=== PATIENT | female | born 1950 | race Caucasian/White ===

== ENCOUNTER 2021-02-12 07:24 | Outpatient (REF) | payer MEDICARE, OTHER, SELFPAY ==
--- NOTE | ~2021-02-12 | MM_ITS ---
EXAMINATION: MM SCREENING DIGITAL BREAST TOMOSYNTHESIS, BILATERAL CLINICAL INFORMATION: Screening. Asymptomatic. The lifetime risk of breast cancer based on the Tyrer-Cuzick Model is 5%. COMPARISON: Mammography: 02/08/2020, 02/01/2019, 12/03/2017 TECHNIQUE: Digital breast tomosynthesis is performed in both the craniocaudal and mediolateral oblique views along with computer-aided detection (CAD). Synthesized 2D images are generated from the tomosynthesis. FINDINGS: There are scattered areas of fibroglandular density (ACR BI-RADS breast composition Category b). There are no significant masses, abnormal calcifications, or other abnormalities. Parenchymal pattern is similar to prior studies. No developing density. No significant changes. MM/MM tomosynthesis screening BI IMPRESSION: No mammographic evidence of malignancy. ASSESSMENT: BI-RADS 1: Negative RECOMMENDATION: Routine annual mammography screening. This patient's information was entered into a reminder system with a target due date for their next mammogram.
== END 2021-02-12 07:25 | disposition home or self-care (01) ==
LOC: HO.MAMMO 07:24
PROVIDERS: PCP Internal Medicine; Visit Provider Internal Medicine
DX: Z12.31 Encounter for screening mammogram for malignant neoplasm of breast (principal)
CPT/HCPCS: 77063; 77067

== ENCOUNTER 2021-05-13 06:04 | Day surgery (SDC) | payer MEDICARE, OTHER, SELFPAY ==
[2021-05-07 10:54] VITALS: BMI 24.1
--- NOTE | 2021-05-09 07:53 | MHC.SHP ---
Pre-Procedural Eval Section A Date of Service: 05/09/21 The patient is an INPATIENT: No Changes since office visit: No Cold of Flu in the past 2 weeks, No New Medical Problems, No Changes in Medication and No Patient answered all questions The History & Physical has been completed within 30 days and I have reviewed it.: Yes Section B Chief Complaint: Cataract Right Eye Allergies: Allergies Allergy/AdvReac Type Severity Reaction Status Date / Time seafood Allergy Severe severe Verified 05/07/21 10:52 vomiting latex Allergy Intermediate Rash Verified 05/07/21 10:52 Plan Diagnosis/Plan: Unchanged I have reviewed the history and physical and performed a pertinent physical examination on my patient. No changes have occurred unless specified.
--- NOTE | 2021-05-10 08:21 | HO.ANESPROP2 ---
Documented by User: Carmelina Brian NP 05/10/21 08:22 HPI - Anesthesia Eval Consult details Narrative: 70yo F for Right Cataract Extraction IOL Insertion No prev cataract on record PCP cleared REPLACED BY [facility] Past Medical History Medical History COVID-19 vaccine series completed DJD (degenerative joint disease) Elevated cholesterol Heartburn symptom Surgical History Surgical History H/O colonoscopy Social History Social History Are you a primary home care manager rn to a significant other at home: No Do you presently have visiting nurse or other home services: No Patient Tobacco Use Status: Never used Tobacco Use of substances other than those prescribed or required for medical reasons: No Have you been hit, kicked, punched, or otherwise hurt by someone within the past year? If so, by whom?: No Are you DNR?: No Advance Directives: No Advance Directives Information Provided: Yes (informational brochure mailed) Advance Directives on File: No Recently lost weight without trying: No Eating poorly because of decreased appetite: No Nutrition Risks: No Nutritional Risk Poor oral hygiene: No (upper partial) Meds Allergies Allergy/AdvReac Type Severity Reaction Status Date / Time seafood Allergy Severe severe Verified 05/13/21 06:16 vomiting latex Allergy Intermediate Rash Verified 05/13/21 06:16 Home Medications Medication Instructions Recorded Confirmed Last Taken Type cholecalciferol (vitamin D3) 25 25 mcg PO QAM 05/07/21 05/07/21 Unknown History mcg (1,000 unit) capsule (Vitamin D3) multivitamin 1 tab PO QAM 05/07/21 05/07/21 Unknown History simvastatin 40 mg tablet 40 mg PO QAM 05/07/21 05/07/21 Unknown History Exam Exam Date and Time: May 10, 202121 Height,Weight and Vital Signs: Height 5 ft 6.5 in Weight 68.946 kg Assessment and Plan Assessment Anesthesia Assessment: Chart Reviewed Documented by User: Chiara Falcon MD 05/13/21 07:26 REPLACED BY [facility] Past Medical History Medical History COVID-19 vaccine series completed DJD (degenerative joint disease) Elevated cholesterol Heartburn symptom Family History Family history of problems with anesthesia: No Surgical History Surgical History H/O colonoscopy History of Problems with Anesthesia: No Social History Social History Are you a primary home care manager rn to a significant other at home: No Do you presently have visiting nurse or other home services: No Patient Tobacco Use Status: Never used Tobacco Use of substances other than those prescribed or required for medical reasons: No Have you been hit, kicked, punched, or otherwise hurt by someone within the past year? If so, by whom?: No Are you DNR?: No Advance Directives: No Advance Directives Information Provided: Yes (informational brochure mailed) Advance Directives on File: No Recently lost weight without trying: No Eating poorly because of decreased appetite: No Nutrition Risks: No Nutritional Risk Poor oral hygiene: No (upper partial) Meds Allergies Allergy/AdvReac Type Severity Reaction Status Date / Time seafood Allergy Severe severe Verified 05/13/21 06:16 vomiting latex Allergy Intermediate Rash Verified 05/13/21 06:16 Home Medications Medication Instructions Recorded Confirmed Last Taken Type cholecalciferol (vitamin D3) 25 25 mcg PO QAM 05/07/21 05/07/21 Unknown History mcg (1,000 unit) capsule (Vitamin D3) multivitamin 1 tab PO QAM 05/07/21 05/07/21 Unknown History simvastatin 40 mg tablet 40 mg PO QAM 05/07/21 05/07/21 Unknown History Exam Height,Weight and Vital Signs: Height 5 ft 6.5 in Weight 68.946 kg Vital Signs Temp Pulse Resp BP Pulse Ox 05/13/21 06:20 97.9 F 69 16 170/78 H 98 Airway Mallampati Class: II TM Dist: >3cm Neck ROM: Full Heart: RRR Lungs: CTAB Assessment and Plan Assessment Anesthesia Assessment: Anesthesia Plan Discussed Final Anesthetic Review Family History of Problems with Anesthesia: No History of Problems with Anesthesia: No NPO: Yes ASA Class: II Final Preanesthetic Review: No Changes in Pt Med Stat, Meds/Allgs Chart Reviewed, Consent Obtained/Reviewed and Anes Risks/Benef Reviewed Patient Risk: Low Procedure Risk: Low Assessment/Block/Sedation in SS: Assess/Block/Sedation-SS Anesthetic Plan Anesthetic Plan: MAC: Disposition: Standard PACU
[2021-05-13 06:20] VITALS: BP 170/78; PULSE 69; RESP 16; TEMP 36.6; O2SAT 98
[2021-05-13] MEDS: Tetracaine HCl/PF 0.5% Oph Sol 4 ML DROPS 1 DROP EYE-RIGHT (06:26)
[2021-05-13] MEDS: Tropicamide 1 % Ophth Sol 3 ML BTL 1 DROP EYE-RIGHT ×3 (06:28→06:36)
[2021-05-13] MEDS: Phenylephrine HCL 2.5% Oph SoL 2 ML BOTTLE 1 DROP EYE-RIGHT ×3 (06:31→06:39)
[2021-05-13] MEDS: Lactated Ringers 500 ML 50 ML IV (06:33)
--- NOTE | 2021-05-13 08:17 | HO.PNOPHT ---
Ophthalmology Procedure Procedure Date of Service: 05/13/21 Ophthalmology Viscoelastic: Healon Duet Dual Pack Pro Ophthalmology Lenses: TECNIS [id number] (15.5) Procedure Notes: PREOPERATIVE DIAGNOSIS: Decreased visual acuity right eye secondary to cataract POSTOPERATIVE DIAGNOSIS: Same PROCEDURE: Right cataract extraction with intraocular lens insertion SURGEON: Rashad Short M.D. ANESTHESIA: Topical/MAC ESTIMATED BLOOD LOSS: None COMPLICATIONS: None After obtaining informed consent, the patient was brought to the operating room suite and placed in the supine position. After adequate sedation per anesthesia, topical drops of Tetracaine were given to the right eye. The eye was then prepped and draped in the usual sterile fashion. The operating room microscope was then positioned over the operative eye and a lid speculum placed. A paracentesis was created. Viscoelastic was then instilled into the anterior chamber. A three plane incision was then created temporally, utilizing a 2.85 mm keratome. Capsulotomy forceps were then utilized to create a circular tear capsulotomy. Hydrodissection and hydrodelineation were carried out until adequate mobilization of the nucleus occurred. Phacoemulsification was then utilized to remove the dense central nucleus followed by removal of the cortical material utilizing the automated aspiration irrigation unit. Viscoelastic was instilled into the posterior capsular bag followed by placement of a posterior chamber intraocular lens without difficulty. The residual Viscoelastic was then removed utilizing the automated IA machine. The wound was checked and found to be watertight. The patient tolerated the procedure well and the lid speculum was removed. Intracameral injection of Vigamox 0.1 mL followed by a subtenon injection of Kenalog-40 0.2 mL were administered. The patient will be seen in the a.m.
[2021-05-13 08:51] VITALS: BP 148/73; PULSE 67; RESP 14; TEMP 36.3; O2SAT 97
== END 2021-05-13 08:59 | disposition home or self-care (01) ==
PROVIDERS: PCP Internal Medicine; Visit Provider Ophthalmology
PROC: (CPT 66985; principal; 2021-05-13 08:30)
DX: H25.11 Age-related nuclear cataract, right eye (principal); H54.7 Unspecified visual loss; Z83.511 Family history of glaucoma; Z83.518 Family history of other specified eye disorder; E78.00 Pure hypercholesterolemia, unspecified; Z79.899 Other long term (current) drug therapy
CPT/HCPCS: 66984; J2250; J3010; J3300; V2632

== ENCOUNTER 2021-05-27 06:07 | Day surgery (SDC) | payer MEDICARE, OTHER, SELFPAY ==
[2021-05-07 10:57] VITALS: BMI 24.1
--- NOTE | 2021-05-23 16:15 | MHC.SHP ---
Pre-Procedural Eval Section A Date of Service: 05/23/21 The patient is an INPATIENT: No Changes since office visit: No Cold of Flu in the past 2 weeks, No New Medical Problems, No Changes in Medication and No Patient answered all questions The History & Physical has been completed within 30 days and I have reviewed it.: Yes Section B Chief Complaint: Cataract Left Eye Allergies: Allergies Allergy/AdvReac Type Severity Reaction Status Date / Time seafood Allergy Severe severe Verified 05/13/21 06:16 vomiting latex Allergy Intermediate Rash Verified 05/13/21 06:16 Plan Diagnosis/Plan: Unchanged I have reviewed the history and physical and performed a pertinent physical examination on my patient. No changes have occurred unless specified.
--- NOTE | 2021-05-24 08:34 | P.CONAN_ITS ---
Documented by User: Carmelina Brian NP 05/24/21 08:34 HPI - Anesthesia Eval Consult details Narrative: 70yo F for Left Cataract Extraction IOL Insertion PCP Cleared Right eye 05/13/2021 with TIVA: Fentanyl 50, Midaz 1 PMFSH Past Medical History Medical History COVID-19 vaccine series completed DJD (degenerative joint disease) Elevated cholesterol Heartburn symptom Family History Family history of problems with anesthesia: No Surgical History Surgical History H/O colonoscopy History of Problems with Anesthesia: No Social History Social History Are you a primary progressive care nurse to a significant other at home: No Do you presently have visiting nurse or other home services: No Patient Tobacco Use Status: Never used Tobacco Use of substances other than those prescribed or required for medical reasons: No Have you been hit, kicked, punched, or otherwise hurt by someone within the past year? If so, by whom?: No Are you DNR?: No Advance Directives: No Advance Directives Information Provided: Yes (informational brochure mailed) Advance Directives on File: No Recently lost weight without trying: No Eating poorly because of decreased appetite: No Nutrition Risks: No Nutritional Risk Poor oral hygiene: No (upper partial) Meds Allergies Allergy/AdvReac Type Severity Reaction Status Date / Time seafood Allergy Severe severe Verified 05/13/21 06:16 vomiting latex Allergy Intermediate Rash Verified 05/13/21 06:16 Home Medications Medication Instructions Recorded Confirmed Last Taken Type cholecalciferol (vitamin D3) 25 25 mcg PO QAM 05/07/21 05/07/21 Unknown History mcg (1,000 unit) capsule (Vitamin D3) multivitamin 1 tab PO QAM 05/07/21 05/07/21 Unknown History simvastatin 40 mg tablet 40 mg PO QAM 05/07/21 05/07/21 Unknown History Exam Exam Date and Time: May 24, 2021 0834 Height,Weight and Vital Signs: Height 5 ft 6.5 in Weight 68.946 kg Assessment and Plan Assessment Anesthesia Assessment: Chart Reviewed Final Anesthetic Review Family History of Problems with Anesthesia: No History of Problems with Anesthesia: No Documented by User: Chiara Falcon MD 05/27/21 08:09 PMFSH Past Medical History Medical History COVID-19 vaccine series completed DJD (degenerative joint disease) Elevated cholesterol Heartburn symptom Surgical History Surgical History H/O colonoscopy Social History Social History Are you a primary progressive care nurse to a significant other at home: No Do you presently have visiting nurse or other home services: No Patient Tobacco Use Status: Never used Tobacco Use of substances other than those prescribed or required for medical reasons: No Have you been hit, kicked, punched, or otherwise hurt by someone within the past year? If so, by whom?: No Are you DNR?: No Advance Directives: No Advance Directives Information Provided: Yes (informational brochure mailed) Advance Directives on File: No Recently lost weight without trying: No Eating poorly because of decreased appetite: No Nutrition Risks: No Nutritional Risk Poor oral hygiene: No (upper partial) Meds Allergies Allergy/AdvReac Type Severity Reaction Status Date / Time seafood Allergy Severe severe Verified 05/13/21 06:16 vomiting latex Allergy Intermediate Rash Verified 05/13/21 06:16 Home Medications Medication Instructions Recorded Confirmed Last Taken Type cholecalciferol (vitamin D3) 25 25 mcg PO QAM 05/07/21 05/07/21 Unknown History mcg (1,000 unit) capsule (Vitamin D3) multivitamin 1 tab PO QAM 05/07/21 05/07/21 Unknown History simvastatin 40 mg tablet 40 mg PO QAM 05/07/21 05/07/21 Unknown History Exam Height,Weight and Vital Signs: Height 5 ft 6.5 in Weight 68.946 kg Vital Signs Temp Pulse Resp BP Pulse Ox 05/27/21 06:25 96.8 F 63 18 156/70 H 97 Airway Mallampati Class: II TM Dist: >3cm Neck ROM: Full Heart: RRR Lungs: CTAB Assessment and Plan Final Anesthetic Review NPO: Yes ASA Class: II Final Preanesthetic Review: No Changes in Pt Med Stat, Meds/Allgs Chart Reviewed, Consent Obtained/Reviewed and Anes Risks/Benef Reviewed Patient Risk: Low Procedure Risk: Low Assessment/Block/Sedation in SS: Assess/Block/Sedation-SS Anesthetic Plan Anesthetic Plan: MAC: Disposition: Standard PACU
[2021-05-27 06:25] VITALS: BP 156/70; PULSE 63; RESP 18; TEMP 36; O2SAT 97
[2021-05-27] MEDS: Tetracaine HCl/PF 0.5% Oph Sol 4 ML DROPS 1 DROP EYE-LEFT (06:29)
[2021-05-27] MEDS: Phenylephrine HCL 2.5% Oph SoL 2 ML BOTTLE 1 DROP EYE-LEFT ×3 (06:29→06:30)
[2021-05-27] MEDS: Tropicamide 1 % Ophth Sol 3 ML BTL 1 DROP EYE-LEFT ×3 (06:29→06:30)
[2021-05-27] MEDS: Lactated Ringers 500 ML 50 ML IV (06:31)
--- NOTE | 2021-05-27 08:39 | HO.PNOPHT ---
Ophthalmology Procedure Procedure Date of Service: 05/27/21 Ophthalmology Viscoelastic: Healon Duet Dual Pack Pro Ophthalmology Lenses: TECVICKEY [id number] (16) Procedure Notes: PREOPERATIVE DIAGNOSIS: Decreased visual acuity left eye secondary to cataract POSTOPERATIVE DIAGNOSIS: Same PROCEDURE: Left cataract extraction with intraocular lens insertion SURGEON: Rashad Short M.D. ANESTHESIA: Topical/MAC ESTIMATED BLOOD LOSS: None COMPLICATIONS: None After obtaining informed consent, the patient was brought to the operation room suite and placed in the supine position. After adequate sedation per anesthesia, topical drops of Tetracaine were given to the left eye. The eye was then prepped and draped in the usual sterile fashion. The operating room microscope was then positioned over the operative eye and a lid speculum placed. A paracentesis was created. Viscoelastic was then instilled into the anterior chamber. A three plane incision was then created temporally, utilizing a 2.85 mm keratome. Capsulotomy forceps were then utilized to create a circular tear capsulotomy. Hydrodissection and hydrodelineation were carried out until adequate mobilization of the nucleus occurred. Phacoemulsification was then utilized to remove the dense central nucleus followed by removal of the cortical material utilizing the automated aspiration irrigation unit. Viscoat elastic was instilled into the posterior capsular bag followed by placement of a posterior chamber intraocular lens without difficulty. The residual Viscoat elastic was then removed utilizing the automated IA machine. The wound was check and found to be watertight. The patient tolerated the procedure well and the lid speculum was removed. Intracameral injection of Vigamox 0.1 mL followed by a subtenon injection of Kenalog-40 0.2 mL were administered. The patient will be seen in the a.m.
[2021-05-27 09:06] VITALS: BP 129/62; PULSE 62; RESP 16; TEMP 36.3; O2SAT 96
== END 2021-05-27 09:21 | disposition home or self-care (01) ==
PROVIDERS: PCP Internal Medicine; Visit Provider Ophthalmology
PROC: (CPT 66985; principal; 2021-05-27 08:40)
DX: H25.12 Age-related nuclear cataract, left eye (principal); Z83.511 Family history of glaucoma; Z83.518 Family history of other specified eye disorder; H54.7 Unspecified visual loss; E78.00 Pure hypercholesterolemia, unspecified; Z79.899 Other long term (current) drug therapy
CPT/HCPCS: 66984; J2250; J3010; J3300; V2632

== ENCOUNTER 2022-02-17 07:46 | Outpatient (REF) | payer MEDICARE, OTHER, SELFPAY ==
--- NOTE | ~2022-02-17 | MM_ITS ---
EXAMINATION: MM SCREENING DIGITAL BREAST TOMOSYNTHESIS, BILATERAL CLINICAL INFORMATION: Screening. Asymptomatic. The lifetime risk of breast cancer based on the Tyrer-Cuzick Model is 5%. COMPARISON: Mammography: 02/12/2021, 02/08/2020, 02/01/2019 TECHNIQUE: Digital breast tomosynthesis is performed in both the craniocaudal and mediolateral oblique views along with computer-aided detection (CAD). Synthesized 2D images are generated from the tomosynthesis. FINDINGS: There are scattered areas of fibroglandular density (ACR BI-RADS breast composition Category b). There are no significant masses, abnormal calcifications, or other abnormalities. The axilla and skin contours are unremarkable. There are no significant changes from prior studies. MM/MM tomosynthesis screening BI IMPRESSION: No mammographic evidence of malignancy. ASSESSMENT: BI-RADS 1: Negative RECOMMENDATION: Routine annual mammography screening. This patient's information was entered into a reminder system with a target due date for their next mammogram.
== END 2022-02-17 07:47 | disposition home or self-care (01) ==
LOC: HO.MAMMO 07:46
PROVIDERS: PCP Internal Medicine; Visit Provider Internal Medicine
DX: Z12.31 Encounter for screening mammogram for malignant neoplasm of breast (principal)
CPT/HCPCS: 77063; 77067

== ENCOUNTER 2023-04-15 15:44 | Outpatient (REF) | payer MEDICARE, OTHER, SELFPAY | END 2023-04-15 15:45 | disposition home or self-care (01) | LOC: HO.MAMMO 15:44 | PROVIDERS: PCP Internal Medicine; Visit Provider Internal Medicine | DX: Z12.31 Encounter for screening mammogram for malignant neoplasm of breast (principal) | CPT/HCPCS: 77063; 77067 ==

== ENCOUNTER → 2023-04-15 15:45 | Outpatient (BNV) | payer MEDICARE, OTHER, SELFPAY | PROVIDERS: PCP Internal Medicine; Visit Provider Radiology Diagnostic Radiology | DX: Z12.31 Encounter for screening mammogram for malignant neoplasm of breast (principal) | CPT/HCPCS: 77063; 77067 ==

== ENCOUNTER 2024-05-03 07:51 | Outpatient (REF) | payer MEDICARE, OTHER, SELFPAY ==
--- NOTE | ~2024-05-03 | MM_ITS ---
EXAMINATION: MM SCREENING DIGITAL BREAST TOMOSYNTHESIS, BILATERAL CLINICAL INFORMATION: Screening. Asymptomatic. COMPARISON: Mammography: Comparison is made with available priors TECHNIQUE: Digital breast mammography with tomosynthesis is performed in both the craniocaudal and mediolateral oblique views along with computer-aided detection (CAD). FINDINGS: There are scattered areas of fibroglandular density (ACR BI-RADS breast composition Category b). There are no significant masses, abnormal calcifications, or other abnormalities. MM/MM tomosynthesis screening BI IMPRESSION: No mammographic evidence of malignancy. ASSESSMENT: BI-RADS BI-RADS 1 - Negative RECOMMENDATION: Routine annual mammography screening. 1 year F/U This examination should not preclude the clinical evaluation of a suspicious palpable abnormality. This patient's information was entered into a reminder system with a target due date for their next mammogram. Electronically signed by: Chelsie Almanzar DO 05/11/2024 12:28 PM [facility]
== END 2024-05-03 07:52 | disposition home or self-care (01) ==
LOC: HO.MAMMO 07:51
PROVIDERS: PCP Internal Medicine; Visit Provider Internal Medicine
DX: Z12.31 Encounter for screening mammogram for malignant neoplasm of breast (principal)
CPT/HCPCS: 77063; 77067

== ENCOUNTER → 2024-05-03 08:15 | Outpatient (BNV) | payer MEDICARE, OTHER, SELFPAY | PROVIDERS: PCP Internal Medicine; Visit Provider Internal Medicine | DX: Z12.31 Encounter for screening mammogram for malignant neoplasm of breast (principal) | CPT/HCPCS: 77063; 77067 ==

== ENCOUNTER 2024-10-22 13:30 | Outpatient (AMB) | payer MEDICARE, OTHER, SELFPAY ==
[2024-10-22 13:33] VITALS: BP 200/90; PULSE 80; TEMP 36.7; O2SAT 98
--- NOTE | 2024-10-22 13:33 | MHC.OFFWIV ---
Intake Vital Signs 10/22/24 13:33 10/22/24 14:52 Height 5 ft 6.5 in BMI Reason not done Patient refused/unable BP 200/90 H 180/80 H Blood Pressure Location Rt brachial Rt brachial Position Sitting Pulse 80 Pulse Source Pulse Oximeter Temp 98.1 F Temp Source Oral Pulse Oximetry (%) 98 Oxygen Delivery Method Room Air Intake Visit Reasons: EP BP 200/95, headache, shaky Patient Tobacco Use Status: Never used Tobacco Allergies seafood Allergy (Severe, Verified 10/22/24 13:33) severe vomiting latex Allergy (Intermediate, Verified 10/22/24 13:33) Rash Do you need a note to return to daycare/school/sports/work: No HPI EP BP 200/95, headache, shaky HPI Details Patient is a 74-year-old female who comes to the walk-in clinic complaining of headache, and feeling shaky, associated with a home blood pressure of 200/95. She denies chest pain, palpitations, shortness of breath, dizziness or vertigo, vision changes, weakness, loss of sensation, or other significant associated symptoms. [facility] Medical History COVID-19 vaccine series completed DJD (degenerative joint disease) Elevated cholesterol Heartburn symptom Surgical History H/O colonoscopy Social History Are you a primary anesthesiologist and critical care to a significant other at home: No Do you presently have visiting nurse or other home services: No Patient Tobacco Use Status: Never used Tobacco Review of Systems Const All systems reviewed & are unremarkable except as noted in HPI and below Physical Exam Vital Signs: Last Vital Signs Temp 98.1 F 10/22/24 13:33 Pulse 80 10/22/24 13:33 BP 180/80 H 10/22/24 14:52 Pulse Ox 98 10/22/24 13:33 Oxygen Delivery Method Room Air 10/22/24 13:33 Const General: cooperative, alert and anxious; No comfortable Nutritional Appearance: average body habitus Neck Neck: Yes normal visual inspection and Yes no JVD Chest Chest palpation & inspection: normal palpation of entire chest wall Resp Effort & Inspection: normal respiratory effort, able to speak in complete sentences, no audible wheezes, no cough, no grunting, not labored, no nasal flaring, no retractions and symmetric chest movement Auscultation: clear to auscultation bilaterally, no crackles, no rales, no rhonchi, no wheezes, lung sounds not diminished and No rub present Cardio Rate: regular rate Skin Other: Good color, warm and dry Psych Appearance: grossly normal Mental Status: mental status grossly normal Speech and movement: Normal speech and movement present Affect: normal affect Attitude: cooperative Thought process: Normal thought process present Insight: Good insight present (Psych) Judgement: Good judgement present (Psych) Results Reviewed Results Reviewed: Twelve lead EKG in office today shows normal sinus rhythm with no ST changes Assessment & Plan Assessment & Plan (1) Hypertensive urgency: Code(s): I16.0 - Hypertensive urgency Plan: Patient is a 74-year-old female comes to the walk-in clinic complaining of having headache, feeling shaky, associated with being in stage III hypertension in the office today. Twelve lead EKG shows normal sinus rhythm with no ST changes. I advised patient that I strongly recommended that she go to the emergency department for evaluation, and she was amenable to this. Expect report called in Coding Level of Care Code Est Pt Level 4 (97921) Diagnoses Hypertensive urgency I16.0
[2024-10-22 14:52] VITALS: BP 180/80
== END 2024-10-22 17:56 | disposition home or self-care (01) ==
PROVIDERS: PCP Internal Medicine; Visit Provider Physician Assistant Medical
DX: I16.0 Hypertensive urgency (principal)

== ENCOUNTER → 2024-10-22 13:30 | Outpatient (BNVA) | payer MEDICARE, OTHER, SELFPAY | PROVIDERS: PCP Internal Medicine; Visit Provider Physician Assistant Medical | DX: I16.0 Hypertensive urgency (principal) | CPT/HCPCS: 99212 ==

== ENCOUNTER 2025-05-05 08:05 | Outpatient (REF) | payer MEDICARE, OTHER, SELFPAY ==
--- NOTE | ~2025-05-05 | MM_ITS ---
EXAMINATION: MM SCREENING DIGITAL BREAST TOMOSYNTHESIS, BILATERAL CLINICAL INFORMATION: Screening. Asymptomatic. COMPARISON: Mammography: Comparison is made with available priors TECHNIQUE: Digital breast mammography with tomosynthesis is performed in both the craniocaudal and mediolateral oblique views along with computer-aided detection (CAD). FINDINGS: There are scattered areas of fibroglandular density. There are no significant masses, abnormal calcifications, or other abnormalities. MM/MM tomosynthesis screening BI IMPRESSION: No mammographic evidence of malignancy. ASSESSMENT: BI-RADS Category 1: Negative RECOMMENDATION: Routine annual mammography screening. 1 year F/U This examination should not preclude the clinical evaluation of a suspicious palpable abnormality. This patient's information was entered into a reminder system with a target due date for their next mammogram. Electronically signed by: Chelsie Almanzar DO 05/09/2025 09:05 AM TULIO
--- OUTSIDE RECORDS SUMMARY | 2025-05-05 08:08 | XMS_ITS | Clinical Summary ---
Author Organization [facility] Address [address] [place] [address] Phone Care Team Providers Care Risk Advisor Name Role Phone Brynn Ramirez MD Primary Care Provider Allergies Active Allergy Reactions Criticality Noted Date Comments Shellfish Containing Products 2024 Medications lisinopril (PRINIVIL,ZESTRI L) 40 MG tablet Take 1 tablet (40 mg total) by mouth daily. 30 tablet 10/23/2024 Active Social History Tobacco Use Types Packs/Day Years Used Date Smoking Tobacco: Never Assessed Education Answer Date Recorded Are you interested in more education? Not on tommy e 10/23/2024 Are you concerned about learning? Not on file 10/23/2024 No 10/23/2024 No 10/23/2024 Food Answer Date Recorded Within the past 6 months we worried whether our food would run out before we got money to buy more. Never True 10/23/2024 Within the past 6 months the food we bought just didn't last and we didn't have enough money to get more. Never True Residential Stability Answer Date Recor ded What is your housing situation today? I have serjio viraj 10/23/2024 How many times have you move d in the past 12 months? Zero (I did not move) 10/23/2024 Paying for Meds Answer Date Recorded Do you have trouble paying for medicines? No 10/23/2024 Paying Utility Bills Answer Date Record ed Do you have trouble paying your heating or elect ricity bill? No 10/23/2024 Transportation Answer Date Recorded Has the lack of transportati on kept you from medical appointments or from getting medications? No 10/23/2024 Digital Access Answer Date Recorded No 10/23/2024 Yes 10/23/2024 Do you have reliable internet access at home? Ye s 10/23/2024 Do you have a device (e.g., phone, tablet, computer) with a working camera? Yes 10/23/2024 Intimate Partner Violence Answer Date R ecorded Are you denied basic needs s uch as food, clothing, or medical care? No 10/23/2024 In the past 12 months have y ou been in a relationship with a person who hurts, threatens, or tries to control you? No 10/23/2024 Are you denied basic needs s uch as food, clothing, or medical care? No 10/23/2024 In the past 12 months have y ou been in a relationship with a person who hurts, threatens, or tries to control you? No 10/23/2024 Comments Unknown Sex and Gender Information Value Date Recorded Sex Assigned at Not on file Legal Sex Female 9:34 AM EDT Gender Identity Not on file Sexual Orientation Not on file Last Filed Vital Signs Vital Sign Reading Time Taken Comments Blood Pressure 187/81 10/23/2024 11:51 AM EDT Pulse 73 10/23/2024 11:51 AM EDT Temperature 36.2 C (97.2 F) 10/23/2024 12:00 PM EDT Respiratory Rate 16 10/23/2024 11:51 AM EDT Oxygen Saturation 97% 10/23/2024 11:51 AM EDT Inhaled Oxygen Concentration - - Weight 69.4 kg (153 lb) 10/23/2024 9:50 AM EDT Height 167.6 cm (5' 6 ) 10/23/2024 9:50 AM EDT Body Mass Index 24.69 10/23/2024 9:50 AM EDT Plan of Treatment Health Maintenance Due Date Last Done Comments Adult Td,Tdap Booster 1948 BLOOD PRESSURE 1948 LIPID PANEL 1948 DEPRESSION SCREENING 1960 SMOKING Hx and SMOKELESS TOB ACCO SCREENING 1961 HEPATITIS C SCREENING 1966 PNEUMOCOCCAL VACCINES (50+ y ears) (1 of 1 - PCV) 1998 ZOSTER VACCINES (1 of 2) 1998 OSTEOPOROSIS SCREENING INITI AL (ONE-TIME) 2013 RSV VACCINE (1 - 1-dose 75+ series) 08/21/2023 INFLUENZA VACCINE (#1) 2025 COVID-19 VACCINE ( - 2024-2 6 season) 2025 CREATININE LEVEL 10/23/2025 10/23/2024 POTASSIUM LEVEL 10/23/2025 10/23/2024 HEPATITIS A VACCINES Aged Out No long er eligible based on patient's age to complete this topic HIB VACCINES Aged Out No longer eligi ble based on patient's age to complete this topic IPV VACCINES Aged Out No longer eligi ble based on patient's age to complete this topic MENINGOCOCCAL VACCINES (ACWY) Aged Out No longer eligible based on patient's age to complete this topic MENINGOCOCCAL VACCINES (B) Aged Out N o longer eligible based on patient's age to complete this topic Medical Devices Not on file Procedures Procedure Name Priority Date/Time Associated Diagnosis Comments BASIC METABOLIC PANEL (BMP) STAT 10/23/2024 10:03 AM EDT from Last 3 Months or Most Recently Relevant to Health Maintenance Results * (ABNORMAL) Basic metabolic panel (10/23/2024 10:03 AM EDT) SODIUM 142 133 - 146 mmol/L [facility] CHLORIDE 107 96 - 108 mmol/L [facility] POTASSIUM 4.0 3.3 - 5.1 mmol/L [facility] CO2 29 21 - 35 mmol/L [facility] BUN 13 6 - 19 mg/dL [facility] CREATININE 0.80 0.5 - 1.5 mg/dL [facility] GLUCOSE 122(H) 70 - 99 mg/dL [facility] CALCIUM 9.2 8.4 - 10.3 mg/dL [facility] EGFR 76 >59 mL/min/1.7 3m2 [facility] Comment:Estimated glomerular filtration rate calculated using the CKD-EPI refit equation. ANION GAP 10 10 - 20 mmol/L [facility] Blood 10/23/2024 10:0 3 AM EDT 10/23/2024 10:08 AM EDT Fuad Marquez MD LAB BLOOD BKR ORDERABLES Final Result [facility] [address] [place] [address] from Last 3 Months or Most Recently Relevant to Health Maintenance Insurance [facility] MEDICARE SUPPLEMENT MEDICARE PART A & B [facility] MEDICARE SUPPLEMENT MEDICARE PART A & B MEDICARE SUPPLEMENT MEDICARE PART A & B MEDICARE SUPPLEMENT MEDICARE PART A & B MEDICARE SUPPLEMENT MEDICARE PART A & B MEDICARE SUPPLEMENT MEDICARE PART A & B Care Teams Risk Advisor Relationship Specialty Start Date End Date Brynn Ramirez MD [address] [place] [address] PCP - General Internal Medicine 10/23/24 Additional Source Comments The information contained in this document represents components of the legal health record. It is not the complete legal health record.[facility]
--- OUTSIDE RECORDS SUMMARY | 2025-05-05 08:09 | XMS_ITS | Encounter Summary ---
Author Organization [facility] Address [address] [place] [address] Phone Care Team Providers Care Store Warehouse Associate Name Role Phone Brynn Ramirez MD Primary Care Provider Encounter Details Date Type Department Care Team (Late st Contact Info) Description 10/23/2024 Procedure Pass [facility], Ct Scan - [address] [address] Social History Tobacco Use Types Packs/Day Years [...] your housing situation today? I have serjio sing 10/23/2024 How many times have you move [...] on file Sexual Orientation Not on file documented as of this encounter Functional Status * Calculated C-SSRS Risk Score (Lifetime/Recent) Answer Date of Assessment Author No Risk Indicated 10/23/2024 9:51 AM EDT Cornel Sawyer RN * Snyder Suicide Severity Rating Scale (Screener/Recent Self-Report) Question Answer Date of Assessment Author 1. Wish to be (Past 1 Month) No 025 9:51 AM EDT Cornel Sawyer, BETZAIDA 2. Non-Specific Active Suici mago Thoughts (Past 1 Month) No 10/23/2024 9:51 AM EDT Cornel Sawyer RN 6. Suicidal Behavior (Lifetime) No 9:51 AM EDT Cornel Sawyer, BETZAIDA documented as of this encounter Plan of Treatment Not on file documented as of this encounter Visit Diagnoses Not on filedocumented in this encounter Care Teams Store Warehouse Associate Relationship Specialty Start Date End Date Brynn Ramirez MD [address] [place] [address] PCP - General Internal Medicine 10/23/24 documented as of this encounter Additional Source Comments The information contained in this document represents components of the legal health record. It is not the complete legal health record.[facility]
== END 2025-05-05 08:06 | disposition home or self-care (01) ==
LOC: HO.MAMMO 08:05
PROVIDERS: PCP Internal Medicine; Visit Provider Internal Medicine
DX: Z12.31 Encounter for screening mammogram for malignant neoplasm of breast (principal)
CPT/HCPCS: 77063; 77067

== ENCOUNTER → 2025-05-05 08:30 | Outpatient (BNV) | payer MEDICARE, OTHER, SELFPAY | PROVIDERS: PCP Internal Medicine; Visit Provider Internal Medicine | DX: Z12.31 Encounter for screening mammogram for malignant neoplasm of breast (principal) | CPT/HCPCS: 77063; 77067 ==